=== PATIENT | female | born 1945 | race Caucasian/White ===

== ENCOUNTER 2016-04-26 11:51 | Emergency (ER) | payer MEDICARE, BC ==
[2016-04-26] MEDS ORDERED: Morphine 2 MG/ML Syringe IVPUSH ONE ×2 (12:16→15:40)
[2016-04-26] MEDS ORDERED: Potassium Chloride 10 MEQ in Premix Bag 1 BAG IV ONE (12:24)
[2016-04-26] MEDS ORDERED: Potassium Chloride 20 MEQ Tab.ER PO ONE (12:24)
[2016-04-26] MEDS ORDERED: Ondansetron 4 MG/2 ML SDV IVPUSH ONE (12:25)
--- NOTE | 2016-04-26 12:27 | EDM.PDOC ---
ED HPI GENERAL MEDICAL PROBLEM - General Chief Complaint: General Stated Complaint: Dizziness Time Seen by Provider: 04/26/16 11:52 Source of Information: Reports: Patient History Limitations: Reports: No limitations - History of Present Illness INITIAL COMMENTS - FREE TEXT/NARRATIVE: Patient had episode of dizziness at home after she reached down to take clothing out of the dryer and then stood back up. Says she had sudden dizziness and fell flat on her back on the floor. Patient has had issues with sudden worsening dizziness over the last few days. Did not hit head recently or have headache prior to dizziness starting. No recent new medications. Patient has long complicated history that includes ongoing issues with infection that appears to have been triggered initially but chronic picking at skin sores. Ultimately she became septic and later had joint infection. Treated by ID at [place]. Currently has PICC line and receives Invanz daily. She also reports significant increase in back pain since the fall today. Was unable to get self off of floor and ultimately was found on floor by daughter-in -law. Any movement causes significant discomfort. Patient received Fentanyl during ambulance ride. It helped somewhat but upon arrival she was noted to have lower O2 sats. Also noted to not want to take deep breath due to discomfort. O2 via NC started and was helpful. Later MS given and seemed to help further improve pain. ROS performed and patient denies any other changes. Lower Back Pain Score (Numeric/FACES): 9 - Related Data Allergies Allergy/AdvReac Type Severity Reaction Status Date / Time cephalexin [From Keflex] Allergy Other Verified 04/18/16 10:06 ciprofloxacin Allergy Rash Verified 04/18/16 10:06 coconut Allergy Hives Verified 04/18/16 10:06 diphenhydramine HCl Allergy Itching Verified 04/18/16 10:06 [From Benadryl] erythromycin base Allergy Other Verified 04/18/16 10:06 influenza A (H1N1) virus Allergy Other Verified 04/18/16 10:06 vaccine [id number] 2008 [From influenza A (H1N1)] influenza virus vaccine, Allergy Cannot Verified 04/18/16 10:06 specific Remember lactose Allergy Stomach Verified 04/18/16 10:06 Upset melatonin Allergy Respiratory Verified 04/18/16 10:06 Distress meperidine [From Demerol] Allergy Other Verified 04/18/16 10:06 meperidine HCl [From Demerol] Allergy Nausea and Verified 04/18/16 10:06 Vomiting Penicillins Allergy Airway Verified 04/18/16 10:06 Tightness pneumococcal vaccine Allergy Cannot Verified 04/18/16 10:06 Remember pseudoephedrine Allergy Other Verified 04/18/16 10:06 [From Sudafed] ranitidine [From Zantac] Allergy Other Verified 04/18/16 10:06 sulfacetamide Allergy Other Verified 04/18/16 10:06 tetracycline Allergy Other Verified 04/18/16 10:06 vancomycin Allergy Renal Verified 04/18/16 10:06 Failure Home Meds: Home Meds RX: Cetirizine [ZyrTEC] 10 mg PO DAILY 01/25/16 [History] RX: Acetaminophen [Acetaminophen Extra Strength] 500 mg PO Q4HR PRN 03/05/16 [ History] RX: Acetaminophen/HYDROcodone [[place] 325-5 MG] 1 tab PO BID PRN #30 tablet 03/23 [Rx] RX: Famotidine [Pepcid] 20 mg PO BID tablet 03/23/16 [Rx] RX: Lactobacillus Rhamnosus GG [Culturelle] 1 cap PO DAILY cap 03/23/16 [Rx] RX: Lidocaine [Lidocaine 5% Paraben-Free] 140 mg TRDERM Q24H PRN #30 patch 03/23 [Rx] RX: Multivitamins [Tab-A-Beverley] 1 tab PO DAILY tablet 03/23/16 [Rx] RX: Ondansetron [Zofran ODT] 4 mg PO Q4H PRN #30 tab.dis 03/23/16 [Rx] RX: Trolamine Salicylate/Aloe Vera [Aspercreme 10%] 1 gm TOP Q1H PRN #0 tube 05/04 [Rx] Potassium Chloride [Klor-Con 10] 10 meq PO DAILY 04/18/16 [History] Past Medical History HEENT History: Reports: Cataract, Impaired vision, Sinusitis Cardiovascular History: Reports: Blood clots/VTE/DVT, Cardiomyopathy, High cholesterol Respiratory History: Reports: Bronchitis, recurrent Gastrointestinal History: Reports: None, GERD Other Gastrointestinal History: Barretts esphagitis. 03-05-16, recent severe diarrhea thought secondary to antibiotic therapy Genitourinary History: Reports: None, Acute renal failure, Other (see below) Other Genitourinary History: Recent ARF secondary to Vancomycin. [employer] [place] History: Reports: Endometriosis, Fibroids, Polycystic Ovaries, Musculoskeletal History: Reports: Arthritis, Fracture, Gout, Osteoporosis, RA Neurological History: Reports: None Psychiatric History: Reports: None Endocrine/Metabolic History: Reports: Osteoporosis Hematologic History: Reports: None, Anemia Immunologic History: Reports: None Oncologic (Cancer) History: Reports: None Dermatologic History: Reports: Cellulitis Other Dermatologic History: Recently took oral Melatonin to help with sleep had hives and respiratory reaction, skin still has open dried areas 4-5 mm across on arms and legs. took claritin at home to resolve. madelaine Michel for Remicade today. - Infectious Disease History Infectious Disease History: Reports: Chicken pox, Measles, Mumps, Rubella, Other (see below) (Bacteremia secondary to MSSA.) Other Infectious Disease History: Bacteremia secondary to MSSA. - Past Surgical History Head Surgeries/Procedures: Reports: None HEENT Surgical History: Reports: Adenoidectomy, Cataract surgery, Tonsillectomy Respiratory Surgical History: Reports: None GI Surgical History: Reports: Appendectomy, Cholecystectomy, Hernia repair/other Female Surgical History: Reports: section, Hysterectomy Endocrine Surgical History: Reports: None Neurological Surgical History: Reports: None Musculoskeletal Surgical History: Reports: Carpal tunnel, Other (see below) Other Musculoskeletal Surgeries/Procedures:: Right wrist/hand opened/drained Oncologic Surgical History: Reports: None Social & Family History - Tobacco Use Smoking Status *Q: Former Smoker Years of Tobacco use: 20 Packs/Tins Daily: 1 Used Tobacco, but Quit: Yes Month Tobacco Last Used: 1990 Second Hand Smoke Exposure: No - Caffeine Use Caffeine Use: Reports: None - Alcohol Use Days Per Week of Alcohol Use: 0 - Recreational Drug Use Recreational Drug Use: No ED ROS GENERAL - Review of Systems Review Of Systems: See Below Constitutional: Reports: other (Patient cannot say if she blacked out at all when she had her dizzy spell). Denies: fever, chills, malaise, weakness, fatigue, night sweats, diaphoresis, decreased appetite, weight loss HEENT: Reports: Ear discharge, Ear pain, Eye pain, Sinus problem, Throat pain, Vertigo. Denies: Vision change Respiratory: Reports: no symptoms. Denies: cough Cardiovascular: Reports: Lightheadedness. Denies: Chest pain, Dyspnea on exertion, Edema, Palpitations, Syncope GI/Abdominal: Reports: No symptoms : Reports: no symptoms Musculoskeletal: Reports: back pain (see HPI), other (denies any other injuries from fall). Denies: neck pain Skin: Reports: other (chronic issues with skin lesions. ) Neurological: Reports: dizziness, other (using walker to help get around her home with the dizziness issues. ). Denies: confusion, headache, numbness, paresthesia, seizure, syncope, tingling, trouble speaking, weakness, change in speech Psychiatric: Reports: No symptoms Hematologic/Lymphatic: Reports: no symptoms ED EXAM, GENERAL - Physical Exam Exam: See Below Exam Limited By: Other (patient has increased pain in back with any movement.) General Appearance: alert, anxious, moderate distress Eye Exam: bilateral eye: EOMI, PERRL, other (no obvious nystagmus noted) Ears: normal external exam, hearing grossly normal, normal TMs Nose: normal inspection Throat/Mouth: Normal inspection, Normal voice, No airway compromise Head: atraumatic, normocephalic Neck: normal inspection, supple, non-tender. No: carotid bruit, lymphadenopathy (L), lymphadenopathy (R), tender lateral, tender midline Respiratory/Chest: no respiratory distress, lungs clear, normal breath sounds, no accessory muscle use, chest non-tender Cardiovascular: normal peripheral pulses, regular rate, rhythm, no edema, no murmur Peripheral Pulses: 2+: radial (L), radial (R), dorsalis pedis (L), dorsalis pedis (R) GI/Abdominal: normal bowel sounds, soft, no distention (Female) Exam: Deferred Rectal (Female) Exam: Deferred Back Exam: paraspinal tenderness (bilateral lumbar region), vertebral tenderness (lower thoracic area and lumbar spine) Extremities: non-tender, no pedal edema, normal capillary refill, other ( Negative straight leg raise bilaterally). No: joint swelling Neurological: alert, oriented, normal cognition, normal reflexes, no motor/ sensory deficits Psychiatric: anxious Skin Exam: Warm, Dry, Other (scattered small scabs and scars noted. None appeared erythematous or were draining. ). No: Diaphoretic, Increased warmth Course - Vital Signs Last Recorded V/S: Last Vital Signs Temp 35.8 C 04/26/16 12:08 Pulse 109 H 04/26/16 12:08 Resp 18 04/26/16 12:08 BP 146/103 H 04/26/16 12:08 Pulse Ox 94 L 04/26/16 12:08 - Orders/Labs/Meds Orders: Active Orders 24 hr Category Date Time Status Oxygen Therapy Adult [Oxygen Therapy, ED] [RC] Care 04/26/16 12:16 Active ASDIRECTED Head wo Cont [CT] Stat Exams 04/26/16 12:13 Taken Lumbar Spine wo Cont [CT] Stat Exams 04/26/16 12:18 Taken UA W/MICROSCOPIC [URIN] Stat Lab 04/26/16 11:53 Uncollected Sodium Chloride 0.9% [Normal Saline] 1,000 ml Med 04/26/16 15:36 Active IV ONETIME Medication Orders Sodium Chloride (Normal Saline) 1,000 mls @ 125 mls/hr IV ONETIME ONE Stop: 04/26/16 23:35 Last Admin: 04/26/16 16:21 Dose: 125 mls/hr Labs: Laboratory Tests 04/26/16 04/26/16 Range/Units 12:14 12:15 WBC 10.0 (4.0-10.2) K/uL RBC 3.79 (3.77-5.09) M/uL Hgb 11.3 L (11.7-15.5) g/dL Hct 35.6 (34.0-46.0) % MCV 93.9 (84.0-98.0) fL MCH 29.8 (28.2-33.3) pg MCHC 31.7 (31.7-36.0) g/dL RDW 16.2 H (11.2-14.1) % Plt Count 344 (150-350) K/uL Neut % (Auto) 80.8 H (45.0-80.0) % Lymph % (Auto) 11.3 (10.0-50.0) % [place] % (Auto) 5.8 (2.0-14.0) % Eos % (Auto) 2.0 (0.0-5.0) % Baso % (Auto) 0.1 (0.0-2.0) % Neut # 8.07 H (1.40-7.00) K/uL Lymph # 1.13 (0.50-3.50) K/uL [place] # 0.58 (0.00-1.00) K/uL Eos # 0.20 (0.00-0.50) K/uL Baso # 0.01 (0.00-0.20) K/uL Sodium 142 (136-145) mmol/L Potassium 3.8 (3.5-5.1) mmol/L Chloride 108 H (98-107) mmol/L Carbon Dioxide 23.4 (21.0-32.0) mmol/L BUN 7 (7-18) mg/dL Creatinine 0.69 (0.51-1.17) mg/dL Est Cr Clr Drug Dosing 52.16 mL/min Estimated GFR (MDRD) > 60 mL/min Glucose 119 H (74-106) mg/dL Calcium 8.4 L (8.5-10.1) mg/dL Total Bilirubin 0.4 (0.2-1.0) mg/dL AST 54 H (15-37) U/L ALT 28 (12-78) U/L Alkaline Phosphatase 277 H (46-116) IU/L Total Protein 6.6 (6.4-8.2) g/dL Albumin 2.2 L (3.4-5.0) g/dL Meds: Medications Generic Name Dose Route Start Last Admin Trade Name Freq PRN Reason Stop Dose Admin Sodium Chloride 1,000 mls @ 125 mls/hr 04/26/16 15:36 04/26/16 16:21 Normal Saline IV 04/26/16 23:35 125 mls/hr ONETIME ONE Administration Discontinued Medications Generic Name Dose Route Start Last Admin Trade Name Freq PRN Reason Stop Dose Admin Heparin Sodium (Porcine) 300 units 04/26/16 14:48 04/26/16 16:21 Heparin Lock Flush 100 Units/Ml Syringe FLUSH 04/26/16 14:49 Not Given ONETIME ONE Ertapenem 1 gm/ Sodium 100 mls @ 200 mls/hr 04/26/16 14:46 04/26/16 15:34 Chloride IV 04/26/16 15:15 200 mls/hr ONETIME ONE Administration Morphine Sulfate 2 mg 04/26/16 12:16 04/26/16 12:57 Morphine IVPUSH 04/26/16 12:17 2 mg ONETIME ONE Administration Morphine Sulfate 2 mg 04/26/16 15:40 04/26/16 16:55 Morphine IVPUSH 04/26/16 15:41 Not Given ONETIME ONE Ondansetron HCl 4 mg 04/26/16 12:25 04/26/16 12:30 Zofran IVPUSH 04/26/16 12:26 4 mg ONETIME ONE Administration Promethazine HCl 25 mg 04/26/16 16:45 04/26/16 16:54 Phenergan IM 04/26/16 16:46 25 mg ONETIME ONE Administration Sodium Chloride 10 ml 04/26/16 14:48 Saline Flush FLUSH 04/26/16 14:49 ONETIME ONE - Radiology Interpretation Free Text/Narrative:: CT of head negative for acute changes. CT of spine however showed changes around t11 and t12 that may indicate discitis per Radiology. - Re-Assessments/Exams Free Text/Narrative Re-Assessment/Exam: 04/26/16 15:41 Patient more comfortable after receiving MS. Radiology recommended MRI to look for active infection in lower thoracic spine. Given patient's recent issues with an infected joint and sepsis it is certainly possible that a localized infection could have developed in this area. Patient was accepted by to be transferred to [place] for continued workup. Plan at this time is to have MRI performed and have ID consult. Patient received Invanz while in ER. Tranfer by ambulance arranged. Can consider admission back to our facility after workup has been performed. Considering Swingbed admission is also an option given the worsening back pain and recent dizziness. Free Text/Narrative Re-Assessment/Exam: 04/26/16 15:45 Patient to be transferred once ambulance is available. Free Text/Narrative Re-Assessment/Exam: 04/26/16 17:19 Continued prolonged stay while waiting for available ambulance for transfer as well as Invanz infusion. Departure - Departure Time of Disposition: 17:20 Disposition: DC/Tfer to Acute Hospital 02 Condition: good Clinical Impression: Dizziness Acute back pain Qualifiers: Back pain location: thoracic back pain Back pain laterality: midline Qualified Code(s): M54.6 - Pain in thoracic spine Fall Qualifiers: Encounter type: initial encounter Qualified Code(s): W19.XXXA - Unspecified fall, initial encounter Referrals: Eusebia Rollins NP [Primary Care Provider] - Forms: ED Department Discharge - My Orders Last 24 Hours: My Active Orders 04/26/16 11:53 UA W/MICROSCOPIC [URIN] Stat 04/26/16 12:13 Head wo Cont [CT] Stat 04/26/16 12:16 Oxygen Therapy Adult [Oxygen Therapy, ED] [] ASDIRECTED 04/26/16 12:18 Lumbar Spine wo Cont [CT] Stat 04/26/16 15:36 Sodium Chloride 0.9% [Normal Saline] 1,000 ml IV ONETIME - Assessment/Plan Last 24 Hours: My Active Orders 04/26/16 11:53 UA W/MICROSCOPIC [URIN] Stat 04/26/16 12:13 Head wo Cont [CT] Stat 04/26/16 12:16 Oxygen Therapy Adult [Oxygen Therapy, ED] [] ASDIRECTED 04/26/16 12:18 Lumbar Spine wo Cont [CT] Stat 04/26/16 15:36 Sodium Chloride 0.9% [Normal Saline] 1,000 ml IV ONETIME
[2016-04-26 12:35] LABS: CHLORIDE,CL 108 mmol/L (98-107); SODIUM,NA 142 mmol/L (136-145)
[2016-04-26] MEDS ORDERED: Ertapenem 1 GM in Sodium Chloride 0.9% 100 ML IV ONE (14:46)
[2016-04-26] MEDS ORDERED: Sodium Chloride 0.9% 10 ML Syringe FLUSH ONE (14:48)
[2016-04-26] MEDS ORDERED: Sodium Chloride 0.9% 1,000 ML IV ONE (15:36)
[2016-04-26] MEDS ORDERED: Promethazine 25 MG/ML SDV IM ONE (16:45)
[2016-04-26 17:39] VITALS: BP 94/46
== END 2016-04-26 17:20 ==
LOC: LL.ED 11:51
DX: R42 Dizziness and giddiness (principal); M54.6 Pain in thoracic spine; E78.00 Pure hypercholesterolemia, unspecified; K21.9 Gastro-esophageal reflux disease without esophagitis; M19.90 Unspecified osteoarthritis, unspecified site; Z86.2 Personal history of diseases of the blood and blood-forming organs and certain disorders involving the immune mechanism; M06.9 Rheumatoid arthritis, unspecified; Z98.890 Other specified postprocedural states; Z98.49 Cataract extraction status, unspecified eye; Z90.49 Acquired absence of other specified parts of digestive tract; Z90.710 Acquired absence of both cervix and uterus; Z87.891 Personal history of nicotine dependence; Z88.1 Allergy status to other antibiotic agents; Z88.7 Allergy status to serum and vaccine; Z88.0 Allergy status to penicillin; Z88.2 Allergy status to sulfonamides; Z88.8 Allergy status to other drugs, medicaments and biological substances; W19.XXXA Unspecified fall, initial encounter
CPT/HCPCS: 36415; 70450; 72131; 80053; 85025; 96361; 96365; 96372; 96375; 99285; J1335; J2270; J2405; J2550; J7030; J7050; 99284

== ENCOUNTER 2024-09-02 08:05 | Inpatient (IN) | payer MEDICARE, BC ==
[2024-09-02 08:48] LABS: BASOPHILS ABSOLUTE AUTO 0.02 K/uL (0.00-0.20); BASOPHILS PERCENT AUTO 0.1 % (0.0-2.0); EOSINOPHILS ABSOLUTE AUTO 0.06 K/uL (0.00-0.50); EOSINOPHILS PERCENT AUTO 0.4 % (0.0-5.0); IMMATURE GRAN ABSOLUTE AUTO 0.11 10^3/uL (0.00-0.04); IMMATURE GRAN PERCENT AUTO 0.7 % (0.0-0.4); LYMPHOCYTES ABSOLUTE AUTO 0.82 K/uL (0.50-3.50); LYMPHOCYTES PERCENT AUTO 5.5 % (10.0-50.0); MONOCYTES ABSOLUTE AUTO 1.09 K/uL (0.00-1.00); MONOCYTES PERCENT AUTO 7.3 % (2.0-14.0); NEUTROPHILS ABSOLUTE AUTO 12.82 K/uL (1.40-7.00); NEUTROPHILS PERCENT AUTO 86.0 % (45.0-80.0); PLATELET COUNT,PLT 333 K/uL (150-350); RED BLOOD CELL COUNT 3.92 M/uL (3.77-5.09); RED CELL DISTRIBUTION WIDTH 13.3 % (11.2-14.1); WHITE BLOOD CELL COUNT,WBC 14.9 K/uL (4.0-10.2)
[2024-09-02 09:07] LABS: ALANINE AMINOTRANSFERASE,ALT 32.0 U/L (12-78); ASPARTATE AMNIOTRANSFERASE,AST 37.0 U/L (15-37); BILIRUBIN TOTAL 0.4 mg/dL (0.2-1.0); BLOOD UREA NITROGEN,BUN 7.0 mg/dL (7-18); CARBON DIOXIDE,CO2 24.6 mmol/L (21.0-32.0); CHLORIDE,CL 92.0 mmol/L (98-107); CREATININE 0.84 mg/dL (0.51-1.17); EST CRCL DRUG DOSING (CG) 47.26 mL/min; GLUCOSE RANDOM 138.0 mg/dL (70-99); POTASSIUM,K 3.3 mmol/L (3.5-5.1); PROTEIN TOTAL,TP 6.6 g/dL (6.4-8.2); SODIUM,NA 126.0 mmol/L (136-145)
[2024-09-02 09:12] LABS: LACTIC ACID 1.8 mmol/L (0.4-2.0)
[2024-09-02 09:14] LABS: ESTIMATED GFR 70.0 mL/min (>=60)
[2024-09-02] MEDS: Ondansetron 4 MG/2 ML SDV IVPUSH ONE (09:39)
[2024-09-02] MEDS: Magnesium Sulfate 2 GM/50 mL 2 GM in Premix Bag 1 BAG IV ONE (09:41)
[2024-09-02 11:00] LABS: APPEARANCE,URINE CLEAR; GLUCOSE,URINE NEGATIVE (NEGATIVE); OCCULT BLOOD,URINE MODERATE (NEGATIVE)
[2024-09-02] MEDS: Potassium Bicarbonate/Cit Ac 20 MEQ Effervescent Tab PO ONE (12:21)
[2024-09-02] MEDS: Loperamide 2 MG Tab PO ONE (12:21)
[2024-09-02] MEDS: methylPREDNISolone Sodium Succinate 40 MG/1 ML SDV IVPUSH SCH (12:24)
[2024-09-02] MEDS ORDERED: Ondansetron 4 MG/2 ML SDV IVPUSH PRN (16:00)
[2024-09-03 07:39] LABS: BASOPHILS ABSOLUTE AUTO 0.01 K/uL (0.00-0.20); BASOPHILS PERCENT AUTO 0.1 % (0.0-2.0); EOSINOPHILS ABSOLUTE AUTO 0.00 K/uL (0.00-0.50); EOSINOPHILS PERCENT AUTO 0.0 % (0.0-5.0); IMMATURE GRAN ABSOLUTE AUTO 0.11 10^3/uL (0.00-0.04); IMMATURE GRAN PERCENT AUTO 0.6 % (0.0-0.4); LYMPHOCYTES ABSOLUTE AUTO 0.66 K/uL (0.50-3.50); LYMPHOCYTES PERCENT AUTO 3.8 % (10.0-50.0); MONOCYTES ABSOLUTE AUTO 0.93 K/uL (0.00-1.00); MONOCYTES PERCENT AUTO 5.4 % (2.0-14.0); NEUTROPHILS ABSOLUTE AUTO 15.55 K/uL (1.40-7.00); NEUTROPHILS PERCENT AUTO 90.1 % (45.0-80.0); PLATELET COUNT,PLT 354 K/uL (150-350); RED BLOOD CELL COUNT 3.90 M/uL (3.77-5.09); RED CELL DISTRIBUTION WIDTH 13.6 % (11.2-14.1); WHITE BLOOD CELL COUNT,WBC 17.3 K/uL (4.0-10.2)
[2024-09-03] MEDS: Lactobacillus Rhamnosus GG (Probiotic) Cap PO SCH (07:46)
[2024-09-03 07:50] LABS: BLOOD UREA NITROGEN,BUN 13.0 mg/dL (7-18); CARBON DIOXIDE,CO2 24.5 mmol/L (21.0-32.0); CHLORIDE,CL 101.0 mmol/L (98-107); CREATININE 0.71 mg/dL (0.51-1.17); EST CRCL DRUG DOSING (CG) 55.92 mL/min; GLUCOSE RANDOM 125.0 mg/dL (70-99); POTASSIUM,K 4.0 mmol/L (3.5-5.1); SODIUM,NA 135.0 mmol/L (136-145)
[2024-09-03 07:52] LABS: ESTIMATED GFR 85.0 mL/min (>=60)
[2024-09-03] MEDS: Sodium Chloride 0.9% 10 ML Syringe FLUSH PRN (07:52)
[2024-09-03 09:30] VITALS: BP 140/81; PULSE 89
[2024-09-03 10:02] LABS: INR 13.0 (0.9-1.1)
== END 2024-09-03 10:28 | disposition home or self-care (01) | DRG 641 ==
LOC: LL.ED 08:05 → LL.MS 11:21
PROVIDERS: ADMIT Emergency Medicine; ATTEND Emergency Medicine
DX: E87.1 Hypo-osmolality and hyponatremia (principal); I42.9 Cardiomyopathy, unspecified; E83.42 Hypomagnesemia; Z66 Do not resuscitate; H54.7 Unspecified visual loss; E78.00 Pure hypercholesterolemia, unspecified; J44.9 Chronic obstructive pulmonary disease, unspecified; Z91.018 Allergy to other foods; K21.9 Gastro-esophageal reflux disease without esophagitis; M19.90 Unspecified osteoarthritis, unspecified site; M10.9 Gout, unspecified; M81.0 Age-related osteoporosis without current pathological fracture; D64.9 Anemia, unspecified; E86.0 Dehydration; Z88.0 Allergy status to penicillin; Z79.899 Other long term (current) drug therapy; Z79.01 Long term (current) use of anticoagulants; Z98.890 Other specified postprocedural states; Z90.49 Acquired absence of other specified parts of digestive tract; Z98.891 History of uterine scar from previous surgery; Z88.8 Allergy status to other drugs, medicaments and biological substances; Z90.710 Acquired absence of both cervix and uterus; Z86.718 Personal history of other venous thrombosis and embolism; Z98.49 Cataract extraction status, unspecified eye
CPT/HCPCS: 36415; 71046; 74019; 80048; 80053; 81001; 83605; 83690; 83735; 84295; 85025; 85610; 86140; 87426-QW; 96365; 96366; 96375; 99285-25; A9270-GY; J2405; J2919; J3475; J7030; J7131

== ENCOUNTER 2024-09-05 17:55 | Inpatient (IN) | payer MEDICARE, BC ==
[2024-09-05 18:22] LABS: BASOPHILS ABSOLUTE AUTO 0.02 K/uL (0.00-0.20); BASOPHILS PERCENT AUTO 0.1 % (0.0-2.0); EOSINOPHILS ABSOLUTE AUTO 0.00 K/uL (0.00-0.50); EOSINOPHILS PERCENT AUTO 0.0 % (0.0-5.0); IMMATURE GRAN ABSOLUTE AUTO 0.18 10^3/uL (0.00-0.04); IMMATURE GRAN PERCENT AUTO 0.9 % (0.0-0.4); LYMPHOCYTES ABSOLUTE AUTO 0.73 K/uL (0.50-3.50); LYMPHOCYTES PERCENT AUTO 3.8 % (10.0-50.0); MONOCYTES ABSOLUTE AUTO 0.99 K/uL (0.00-1.00); MONOCYTES PERCENT AUTO 5.2 % (2.0-14.0); NEUTROPHILS ABSOLUTE AUTO 17.29 K/uL (1.40-7.00); NEUTROPHILS PERCENT AUTO 90.0 % (45.0-80.0); PLATELET COUNT,PLT 400 K/uL (150-350); RED BLOOD CELL COUNT 4.07 M/uL (3.77-5.09); RED CELL DISTRIBUTION WIDTH 13.7 % (11.2-14.1); WHITE BLOOD CELL COUNT,WBC 19.2 K/uL (4.0-10.2)
[2024-09-05 18:26] LABS: APPEARANCE,URINE CLEAR; GLUCOSE,URINE NEGATIVE (NEGATIVE); OCCULT BLOOD,URINE SMALL (NEGATIVE)
[2024-09-05] MEDS ORDERED: Naloxone 0.4 MG/ML SDV IVPUSH PRN (18:27)
[2024-09-05] MEDS: fentaNYL 50 MCG/ML SDV IVPUSH ONE ×2 (18:32→19:17)
[2024-09-05] MEDS: Sodium Chloride 0.9% 10 ML Syringe FLUSH PRN (18:33)
[2024-09-05 18:42] LABS: ALANINE AMINOTRANSFERASE,ALT 43 U/L (12-78); ASPARTATE AMNIOTRANSFERASE,AST 54 U/L (15-37); BILIRUBIN TOTAL 0.5 mg/dL (0.2-1.0); BLOOD UREA NITROGEN,BUN 12 mg/dL (7-18); CARBON DIOXIDE,CO2 25.0 mmol/L (21.0-32.0); CHLORIDE,CL 92 mmol/L (98-107); CREATININE 0.75 mg/dL (0.51-1.17); GLUCOSE RANDOM 147 mg/dL (70-99); INR 8.3 (0.9-1.1); POTASSIUM,K 3.7 mmol/L (3.5-5.1); PROTEIN TOTAL,TP 7.0 g/dL (6.4-8.2); SODIUM,NA 126 mmol/L (136-145)
[2024-09-05 18:43] LABS: ESTIMATED GFR 80 mL/min (>=60)
[2024-09-05 18:47] LABS: LACTIC ACID 2.2 mmol/L (0.4-2.0)
[2024-09-05] MEDS: Ondansetron 4 MG/2 ML SDV IVPUSH ONE (19:17)
[2024-09-05] MEDS: metroNIDAZOLE/Normal Saline 500 MG in Premix Bag 1 BAG IV SCH (19:55)
[2024-09-05] MEDS ORDERED: Ondansetron 4 MG/2 ML SDV IVPUSH PRN (20:34)
[2024-09-05] MEDS ORDERED: Ondansetron 4 MG Tab.DIS PO PRN (20:34)
[2024-09-05] MEDS ORDERED: Clotrimazole 1% Crm 30 GM Tube TOP PRN (20:57)
[2024-09-05] MEDS: Ketorolac 15 MG/ML SDV IVPUSH PRN (22:02)
[2024-09-05 22:42] LABS: INR 7.5 (0.9-1.1)
[2024-09-06] MEDS: Lactobacillus Rhamnosus GG (Probiotic) Cap PO SCH (07:39)
[2024-09-06] MEDS ORDERED: Non-Formulary Medication 1 Each (Magnesium Oxide [Magnesium Oxide] 250 MG Tablet) PO SCH (08:00)
[2024-09-06 08:06] LABS: INR 1.4 (0.9-1.1)
[2024-09-06 08:07] LABS: ALANINE AMINOTRANSFERASE,ALT 35 U/L (12-78); ASPARTATE AMNIOTRANSFERASE,AST 39 U/L (15-37); BILIRUBIN TOTAL 0.4 mg/dL (0.2-1.0); BLOOD UREA NITROGEN,BUN 11 mg/dL (7-18); CARBON DIOXIDE,CO2 27.5 mmol/L (21.0-32.0); CHLORIDE,CL 97 mmol/L (98-107); CREATININE 0.74 mg/dL (0.51-1.17); GLUCOSE RANDOM 115 mg/dL (70-99); POTASSIUM,K 3.4 mmol/L (3.5-5.1); PROTEIN TOTAL,TP 5.7 g/dL (6.4-8.2); SODIUM,NA 130 mmol/L (136-145)
[2024-09-06 08:10] LABS: BASOPHILS ABSOLUTE AUTO 0.01 K/uL (0.00-0.20); BASOPHILS PERCENT AUTO 0.1 % (0.0-2.0); EOSINOPHILS ABSOLUTE AUTO 0.01 K/uL (0.00-0.50); EOSINOPHILS PERCENT AUTO 0.1 % (0.0-5.0); IMMATURE GRAN ABSOLUTE AUTO 0.11 10^3/uL (0.00-0.04); IMMATURE GRAN PERCENT AUTO 0.8 % (0.0-0.4); LYMPHOCYTES ABSOLUTE AUTO 0.69 K/uL (0.50-3.50); LYMPHOCYTES PERCENT AUTO 4.9 % (10.0-50.0); MONOCYTES ABSOLUTE AUTO 0.77 K/uL (0.00-1.00); MONOCYTES PERCENT AUTO 5.5 % (2.0-14.0); NEUTROPHILS ABSOLUTE AUTO 12.36 K/uL (1.40-7.00); NEUTROPHILS PERCENT AUTO 88.6 % (45.0-80.0); PLATELET COUNT,PLT 360 K/uL (150-350); RED BLOOD CELL COUNT 3.42 M/uL (3.77-5.09); RED CELL DISTRIBUTION WIDTH 13.8 % (11.2-14.1); WHITE BLOOD CELL COUNT,WBC 14.0 K/uL (4.0-10.2)
[2024-09-06 08:22] LABS: ESTIMATED GFR 81 mL/min (>=60)
[2024-09-06 15:12] LABS: POTASSIUM,K 3.4 mmol/L (3.5-5.1); PRO B-TYPE NATRIUR PEPT,BNPPRO 5039.0 pg/mL (0-125); SODIUM,NA 128.0 mmol/L (136-145)
[2024-09-06 20:29] LABS: BASOPHILS ABSOLUTE AUTO 0.01 K/uL (0.00-0.20); BASOPHILS PERCENT AUTO 0.1 % (0.0-2.0); EOSINOPHILS ABSOLUTE AUTO 0.07 K/uL (0.00-0.50); EOSINOPHILS PERCENT AUTO 0.4 % (0.0-5.0); IMMATURE GRAN ABSOLUTE AUTO 0.09 10^3/uL (0.00-0.04); IMMATURE GRAN PERCENT AUTO 0.5 % (0.0-0.4); LYMPHOCYTES ABSOLUTE AUTO 0.56 K/uL (0.50-3.50); LYMPHOCYTES PERCENT AUTO 3.3 % (10.0-50.0); MONOCYTES ABSOLUTE AUTO 0.66 K/uL (0.00-1.00); MONOCYTES PERCENT AUTO 3.9 % (2.0-14.0); NEUTROPHILS ABSOLUTE AUTO 15.47 K/uL (1.40-7.00); NEUTROPHILS PERCENT AUTO 91.8 % (45.0-80.0); PLATELET COUNT,PLT 306 K/uL (150-350); RED BLOOD CELL COUNT 3.44 M/uL (3.77-5.09); RED CELL DISTRIBUTION WIDTH 13.9 % (11.2-14.1); WHITE BLOOD CELL COUNT,WBC 16.9 K/uL (4.0-10.2)
[2024-09-06 20:42] LABS: BLOOD UREA NITROGEN,BUN 11.0 mg/dL (7-18); CARBON DIOXIDE,CO2 23.6 mmol/L (21.0-32.0); CHLORIDE,CL 96.0 mmol/L (98-107); CREATININE 0.74 mg/dL (0.51-1.17); EST CRCL DRUG DOSING (CG) 53.65 mL/min; GLUCOSE RANDOM 126.0 mg/dL (70-99); POTASSIUM,K 3.3 mmol/L (3.5-5.1); SODIUM,NA 128.0 mmol/L (136-145)
[2024-09-06] MEDS: Orphenadrine 60 MG/2 ML Inj IV SCH (20:44)
[2024-09-06] MEDS: Potassium Bicarbonate/Cit Ac 20 MEQ Effervescent Tab PO ONE ×2 (20:45→21:54)
[2024-09-06] MEDS: Furosemide 40 MG/4 ML VIAL IVPUSH ONE ×2 (20:45→21:16)
[2024-09-06 20:46] LABS: ESTIMATED GFR 81.0 mL/min (>=60)
[2024-09-07 08:25] LABS: INR 1.3 (0.9-1.1)
[2024-09-07 08:37] LABS: BASOPHILS ABSOLUTE AUTO 0.01 K/uL (0.00-0.20); BASOPHILS PERCENT AUTO 0.1 % (0.0-2.0); EOSINOPHILS ABSOLUTE AUTO 0.09 K/uL (0.00-0.50); EOSINOPHILS PERCENT AUTO 0.6 % (0.0-5.0); IMMATURE GRAN ABSOLUTE AUTO 0.09 10^3/uL (0.00-0.04); IMMATURE GRAN PERCENT AUTO 0.6 % (0.0-0.4); LYMPHOCYTES ABSOLUTE AUTO 0.48 K/uL (0.50-3.50); LYMPHOCYTES PERCENT AUTO 3.4 % (10.0-50.0); MONOCYTES ABSOLUTE AUTO 0.67 K/uL (0.00-1.00); MONOCYTES PERCENT AUTO 4.7 % (2.0-14.0); NEUTROPHILS ABSOLUTE AUTO 12.98 K/uL (1.40-7.00); NEUTROPHILS PERCENT AUTO 90.6 % (45.0-80.0); PLATELET COUNT,PLT 322 K/uL (150-350); RED BLOOD CELL COUNT 3.48 M/uL (3.77-5.09); RED CELL DISTRIBUTION WIDTH 14.0 % (11.2-14.1); WHITE BLOOD CELL COUNT,WBC 14.3 K/uL (4.0-10.2)
[2024-09-07 09:10] LABS: ALANINE AMINOTRANSFERASE,ALT 42.0 U/L (12-78); ASPARTATE AMNIOTRANSFERASE,AST 49.0 U/L (15-37); BILIRUBIN TOTAL 0.4 mg/dL (0.2-1.0); BLOOD UREA NITROGEN,BUN 10.0 mg/dL (7-18); CARBON DIOXIDE,CO2 25.7 mmol/L (21.0-32.0); CHLORIDE,CL 99.0 mmol/L (98-107); CREATININE 0.78 mg/dL (0.51-1.17); EST CRCL DRUG DOSING (CG) 50.9 mL/min; GLUCOSE RANDOM 121.0 mg/dL (70-99); POTASSIUM,K 3.6 mmol/L (3.5-5.1); PRO B-TYPE NATRIUR PEPT,BNPPRO 5140.0 pg/mL (0-125); PROTEIN TOTAL,TP 6.0 g/dL (6.4-8.2); SODIUM,NA 132.0 mmol/L (136-145)
[2024-09-07 09:11] VITALS: BP 114/62; PULSE 124
[2024-09-07 09:20] LABS: ESTIMATED GFR 76.0 mL/min (>=60)
[2024-09-07] MEDS: Furosemide 40 MG/4 ML VIAL IVPUSH ONE (10:06)
== END 2024-09-07 12:00 | DRG 372 ==
LOC: LL.ED 17:55 → LL.MS 20:30
PROVIDERS: ADMIT Physician Assistant; ATTEND Physician Assistant
DX: A04.8 Other specified bacterial intestinal infections (principal); R53.1 Weakness; E87.1 Hypo-osmolality and hyponatremia; I42.9 Cardiomyopathy, unspecified; Z66 Do not resuscitate; R79.1 Abnormal coagulation profile; H54.7 Unspecified visual loss; I25.10 Atherosclerotic heart disease of native coronary artery without angina pectoris; D72.829 Elevated white blood cell count, unspecified; J44.9 Chronic obstructive pulmonary disease, unspecified; K21.9 Gastro-esophageal reflux disease without esophagitis; M19.90 Unspecified osteoarthritis, unspecified site; I10 Essential (primary) hypertension; E78.00 Pure hypercholesterolemia, unspecified; M81.0 Age-related osteoporosis without current pathological fracture; M06.9 Rheumatoid arthritis, unspecified; F41.9 Anxiety disorder, unspecified; H91.93 Unspecified hearing loss, bilateral; F32.A Depression, unspecified; R79.89 Other specified abnormal findings of blood chemistry; Z90.89 Acquired absence of other organs; Z98.49 Cataract extraction status, unspecified eye; Z98.890 Other specified postprocedural states; Z88.1 Allergy status to other antibiotic agents; Z86.718 Personal history of other venous thrombosis and embolism; Z88.7 Allergy status to serum and vaccine; Z88.2 Allergy status to sulfonamides; Z88.8 Allergy status to other drugs, medicaments and biological substances; Z91.018 Allergy to other foods; Z91.011 Allergy to milk products; Z79.52 Long term (current) use of systemic steroids; Z88.0 Allergy status to penicillin; Z79.01 Long term (current) use of anticoagulants; Z79.899 Other long term (current) drug therapy; Z90.49 Acquired absence of other specified parts of digestive tract; Z90.710 Acquired absence of both cervix and uterus
CPT/HCPCS: 36415; 71045; 72131; 74176; 80048; 80053; 81001; 82270; 83605; 83735; 83880; 84132; 84295; 85025; 85610; 87040; 87077; 87147; 87186; 96365; 96375; 96376; 99285-25; A9270-GY; J0696; J1836; J1885; J1938; J2270; J2360; J2405; J2470; J3010; J3374; J3430; J7030; J7050; J7131

== ENCOUNTER 2024-09-15 09:37 | Inpatient (IN) | payer MEDICARE, BC ==
[2024-09-16] MEDS: Sodium Chloride 0.9% 10 ML Syringe FLUSH SCH ×2 (14:56→15:29)
[2024-09-16] MEDS ORDERED: Clotrimazole 1% Crm 30 GM Tube TOP PRN (17:37)
[2024-09-16] MEDS ORDERED: DENOSUMAB 60 MG/1 ML SUBCUT SCH (17:45)
[2024-09-17] MEDS: Lutein/Minerals/Vitamin C/Vitamin E Acetate Cap PO SCH (07:35)
[2024-09-20 13:16] LABS: BASOPHILS ABSOLUTE AUTO 0.02 K/uL (0.00-0.20); BASOPHILS PERCENT AUTO 0.3 % (0.0-2.0); EOSINOPHILS ABSOLUTE AUTO 0.14 K/uL (0.00-0.50); EOSINOPHILS PERCENT AUTO 1.9 % (0.0-5.0); IMMATURE GRAN ABSOLUTE AUTO 0.04 10^3/uL (0.00-0.04); IMMATURE GRAN PERCENT AUTO 0.5 % (0.0-0.4); LYMPHOCYTES ABSOLUTE AUTO 1.09 K/uL (0.50-3.50); LYMPHOCYTES PERCENT AUTO 14.5 % (10.0-50.0); MONOCYTES ABSOLUTE AUTO 0.73 K/uL (0.00-1.00); MONOCYTES PERCENT AUTO 9.7 % (2.0-14.0); NEUTROPHILS ABSOLUTE AUTO 5.48 K/uL (1.40-7.00); NEUTROPHILS PERCENT AUTO 73.1 % (45.0-80.0); PLATELET COUNT,PLT 245 K/uL (150-350); RED BLOOD CELL COUNT 3.35 M/uL (3.77-5.09); RED CELL DISTRIBUTION WIDTH 14.4 % (11.2-14.1); WHITE BLOOD CELL COUNT,WBC 7.5 K/uL (4.0-10.2)
[2024-09-20 13:28] LABS: GLUCOSE,URINE NEGATIVE (NEGATIVE); OCCULT BLOOD,URINE LARGE (NEGATIVE)
[2024-09-20 13:41] LABS: APPEARANCE,URINE SLIGHTLY CLOUDY
[2024-09-20 13:44] LABS: ALANINE AMINOTRANSFERASE,ALT 2.0 U/L (12-78); ASPARTATE AMNIOTRANSFERASE,AST 25.0 U/L (15-37); BILIRUBIN TOTAL 0.2 mg/dL (0.2-1.0); BLOOD UREA NITROGEN,BUN 11.0 mg/dL (7-18); CARBON DIOXIDE,CO2 30.9 mmol/L (21.0-32.0); CHLORIDE,CL 102.0 mmol/L (98-107); CREATININE 0.93 mg/dL (0.51-1.17); EST CRCL DRUG DOSING (CG) 34.08 mL/min; GLUCOSE RANDOM 200.0 mg/dL (70-99); POTASSIUM,K 3.2 mmol/L (3.5-5.1); PRO B-TYPE NATRIUR PEPT,BNPPRO 3640.0 pg/mL (0-125); PROTEIN TOTAL,TP 6.0 g/dL (6.4-8.2); SODIUM,NA 140.0 mmol/L (136-145)
[2024-09-20 13:44] LABS: SQUAMOUS EPITHELIAL CELLS,UR RARE /HPF (NOT SEEN); YEAST,URINE FEW /HPF (NEGATIVE)
[2024-09-20 13:45] LABS: ESTIMATED GFR 62.0 mL/min (>=60)
[2024-09-20] MEDS: Furosemide 20 MG/2 ML VIAL IVPUSH ONE (14:43)
[2024-09-20] MEDS: Potassium Bicarbonate/Cit Ac 20 MEQ Effervescent Tab PO ONE (14:43)
[2024-09-20] MEDS: Nitrofurantoin Monohydrate/Macrocrystalline 100 MG Cap PO SCH (14:43)
[2024-09-20] MEDS: Sodium Chloride 0.9% 10 ML Syringe FLUSH PRN (14:44)
[2024-09-20 14:47] LABS: O2 DELIVERY DEVICE ROOM AIR; O2 SATURATION VENOUS 86 %; PCO2 VENOUS 48 mmHG (41-51); PH,VENOUS 7.46 (7.31-7.41); PO2 VENOUS 49 mmHG
[2024-09-20 14:48] LABS: BASE EXCESS VENOUS 9 mmol/L ((-2)-3); BICARBONATE,VENOUS 34 mmol/L (23-28)
[2024-09-20 15:00] LABS: LACTIC ACID 1.3 mmol/L (0.4-2.0)
[2024-09-23 07:32] LABS: BASOPHILS ABSOLUTE AUTO 0.03 K/uL (0.00-0.20); BASOPHILS PERCENT AUTO 0.5 % (0.0-2.0); EOSINOPHILS ABSOLUTE AUTO 0.25 K/uL (0.00-0.50); EOSINOPHILS PERCENT AUTO 3.9 % (0.0-5.0); IMMATURE GRAN ABSOLUTE AUTO 0.02 10^3/uL (0.00-0.04); IMMATURE GRAN PERCENT AUTO 0.3 % (0.0-0.4); LYMPHOCYTES ABSOLUTE AUTO 1.40 K/uL (0.50-3.50); LYMPHOCYTES PERCENT AUTO 22.1 % (10.0-50.0); MONOCYTES ABSOLUTE AUTO 0.60 K/uL (0.00-1.00); MONOCYTES PERCENT AUTO 9.5 % (2.0-14.0); NEUTROPHILS ABSOLUTE AUTO 4.04 K/uL (1.40-7.00); NEUTROPHILS PERCENT AUTO 63.7 % (45.0-80.0); PLATELET COUNT,PLT 219 K/uL (150-350); RED BLOOD CELL COUNT 3.29 M/uL (3.77-5.09); RED CELL DISTRIBUTION WIDTH 14.4 % (11.2-14.1); WHITE BLOOD CELL COUNT,WBC 6.3 K/uL (4.0-10.2)
[2024-09-23 07:50] LABS: ASPARTATE AMNIOTRANSFERASE,AST 21 U/L (15-37); BILIRUBIN TOTAL 0.4 mg/dL (0.2-1.0); BLOOD UREA NITROGEN,BUN 13 mg/dL (7-18); CARBON DIOXIDE,CO2 33.1 mmol/L (21.0-32.0); CHLORIDE,CL 100 mmol/L (98-107); CREATININE 0.84 mg/dL (0.51-1.17); EST CRCL DRUG DOSING (CG) 37.73 mL/min; GLUCOSE RANDOM 108 mg/dL (70-99); POTASSIUM,K 4.1 mmol/L (3.5-5.1); PROTEIN TOTAL,TP 6.3 g/dL (6.4-8.2); SODIUM,NA 137 mmol/L (136-145)
[2024-09-23 07:53] LABS: ESTIMATED GFR 70 mL/min (>=60)
[2024-09-23 08:01] LABS: ALANINE AMINOTRANSFERASE,ALT < 6 U/L (12-78)
[2024-09-25] MEDS: Ondansetron 4 MG Tab.DIS PO PRN (09:27)
[2024-09-30] MEDS: Menthol 10%/Methyl Salicylate 15% 85 GM Tube TOP PRN (01:55)
[2024-09-30 07:35] LABS: BASOPHILS ABSOLUTE AUTO 0.03 K/uL (0.00-0.20); BASOPHILS PERCENT AUTO 0.6 % (0.0-2.0); EOSINOPHILS ABSOLUTE AUTO 0.25 K/uL (0.00-0.50); EOSINOPHILS PERCENT AUTO 4.7 % (0.0-5.0); IMMATURE GRAN ABSOLUTE AUTO 0.02 10^3/uL (0.00-0.04); IMMATURE GRAN PERCENT AUTO 0.4 % (0.0-0.4); LYMPHOCYTES ABSOLUTE AUTO 1.54 K/uL (0.50-3.50); LYMPHOCYTES PERCENT AUTO 28.9 % (10.0-50.0); MONOCYTES ABSOLUTE AUTO 0.38 K/uL (0.00-1.00); MONOCYTES PERCENT AUTO 7.1 % (2.0-14.0); NEUTROPHILS ABSOLUTE AUTO 3.11 K/uL (1.40-7.00); NEUTROPHILS PERCENT AUTO 58.3 % (45.0-80.0); PLATELET COUNT,PLT 247 K/uL (150-350); RED BLOOD CELL COUNT 3.38 M/uL (3.77-5.09); RED CELL DISTRIBUTION WIDTH 14.3 % (11.2-14.1); WHITE BLOOD CELL COUNT,WBC 5.3 K/uL (4.0-10.2)
[2024-09-30 08:05] LABS: ASPARTATE AMNIOTRANSFERASE,AST 19 U/L (15-37); BILIRUBIN TOTAL 0.3 mg/dL (0.2-1.0); BLOOD UREA NITROGEN,BUN 5 mg/dL (7-18); CARBON DIOXIDE,CO2 29.6 mmol/L (21.0-32.0); CHLORIDE,CL 106 mmol/L (98-107); CREATININE 0.77 mg/dL (0.51-1.17); EST CRCL DRUG DOSING (CG) 41.16 mL/min; GLUCOSE RANDOM 99 mg/dL (70-99); POTASSIUM,K 3.2 mmol/L (3.5-5.1); PROTEIN TOTAL,TP 6.5 g/dL (6.4-8.2); SODIUM,NA 146 mmol/L (136-145)
[2024-09-30 08:08] LABS: ESTIMATED GFR 77 mL/min (>=60)
[2024-09-30 08:57] LABS: ALANINE AMINOTRANSFERASE,ALT < 6 U/L (12-78)
[2024-10-05] MEDS: Potassium Bicarbonate/Cit Ac 20 MEQ Effervescent Tab PO ONE (08:25)
[2024-10-07 07:42] LABS: BASOPHILS ABSOLUTE AUTO 0.04 K/uL (0.00-0.20); BASOPHILS PERCENT AUTO 0.6 % (0.0-2.0); EOSINOPHILS ABSOLUTE AUTO 0.21 K/uL (0.00-0.50); EOSINOPHILS PERCENT AUTO 3.3 % (0.0-5.0); IMMATURE GRAN ABSOLUTE AUTO 0.01 10^3/uL (0.00-0.04); IMMATURE GRAN PERCENT AUTO 0.2 % (0.0-0.4); LYMPHOCYTES ABSOLUTE AUTO 1.70 K/uL (0.50-3.50); LYMPHOCYTES PERCENT AUTO 26.6 % (10.0-50.0); MONOCYTES ABSOLUTE AUTO 0.51 K/uL (0.00-1.00); MONOCYTES PERCENT AUTO 8.0 % (2.0-14.0); NEUTROPHILS ABSOLUTE AUTO 3.93 K/uL (1.40-7.00); NEUTROPHILS PERCENT AUTO 61.3 % (45.0-80.0); PLATELET COUNT,PLT 215 K/uL (150-350); RED BLOOD CELL COUNT 3.55 M/uL (3.77-5.09); RED CELL DISTRIBUTION WIDTH 14.2 % (11.2-14.1); WHITE BLOOD CELL COUNT,WBC 6.4 K/uL (4.0-10.2)
[2024-10-07 08:41] LABS: ASPARTATE AMNIOTRANSFERASE,AST 23.0 U/L (15-37); BILIRUBIN TOTAL 0.3 mg/dL (0.2-1.0); BLOOD UREA NITROGEN,BUN 6.0 mg/dL (7-18); CARBON DIOXIDE,CO2 28.0 mmol/L (21.0-32.0); CHLORIDE,CL 108.0 mmol/L (98-107); CREATININE 0.84 mg/dL (0.51-1.17); EST CRCL DRUG DOSING (CG) 37.73 mL/min; GLUCOSE RANDOM 108.0 mg/dL (70-99); POTASSIUM,K 3.3 mmol/L (3.5-5.1); PROTEIN TOTAL,TP 6.6 g/dL (6.4-8.2); SODIUM,NA 147.0 mmol/L (136-145)
[2024-10-07 08:50] LABS: ALANINE AMINOTRANSFERASE,ALT 3.0 U/L (12-78); ESTIMATED GFR 70.0 mL/min (>=60)
[2024-10-12] MEDS: Potassium Chloride 10 MEQ Tab.ER PO SCH (09:13)
[2024-10-12] MEDS: Potassium Bicarbonate/Cit Ac 20 MEQ Effervescent Tab PO ONE (12:03)
[2024-10-14 07:37] LABS: BASOPHILS ABSOLUTE AUTO 0.02 K/uL (0.00-0.20); BASOPHILS PERCENT AUTO 0.5 % (0.0-2.0); EOSINOPHILS ABSOLUTE AUTO 0.24 K/uL (0.00-0.50); EOSINOPHILS PERCENT AUTO 5.6 % (0.0-5.0); IMMATURE GRAN ABSOLUTE AUTO 0.01 10^3/uL (0.00-0.04); IMMATURE GRAN PERCENT AUTO 0.2 % (0.0-0.4); LYMPHOCYTES ABSOLUTE AUTO 1.26 K/uL (0.50-3.50); LYMPHOCYTES PERCENT AUTO 29.4 % (10.0-50.0); MONOCYTES ABSOLUTE AUTO 0.57 K/uL (0.00-1.00); MONOCYTES PERCENT AUTO 13.3 % (2.0-14.0); NEUTROPHILS ABSOLUTE AUTO 2.18 K/uL (1.40-7.00); NEUTROPHILS PERCENT AUTO 51.0 % (45.0-80.0); PLATELET COUNT,PLT 147 K/uL (150-350); RED BLOOD CELL COUNT 3.29 M/uL (3.77-5.09); RED CELL DISTRIBUTION WIDTH 14.1 % (11.2-14.1); WHITE BLOOD CELL COUNT,WBC 4.3 K/uL (4.0-10.2)
[2024-10-14 07:46] LABS: ASPARTATE AMNIOTRANSFERASE,AST 19 U/L (15-37); BILIRUBIN TOTAL 0.3 mg/dL (0.2-1.0); BLOOD UREA NITROGEN,BUN 6 mg/dL (7-18); CARBON DIOXIDE,CO2 34.8 mmol/L (21.0-32.0); CHLORIDE,CL 110 mmol/L (98-107); CREATININE 0.74 mg/dL (0.51-1.17); EST CRCL DRUG DOSING (CG) 42.83 mL/min; GLUCOSE RANDOM 104 mg/dL (70-99); POTASSIUM,K 3.6 mmol/L (3.5-5.1); PROTEIN TOTAL,TP 5.9 g/dL (6.4-8.2); SODIUM,NA 150 mmol/L (136-145)
[2024-10-14 07:51] LABS: ESTIMATED GFR 81 mL/min (>=60)
[2024-10-14 07:56] LABS: ALANINE AMINOTRANSFERASE,ALT < 6 U/L (12-78)
[2024-10-16] MEDS: Furosemide 40 MG/4 ML VIAL IVPUSH ONE (13:11)
[2024-10-17 15:13] LABS: APPEARANCE,URINE CLEAR; GLUCOSE,URINE NEGATIVE (NEGATIVE); OCCULT BLOOD,URINE NEGATIVE (NEGATIVE)
[2024-10-20 06:12] LABS: BASOPHILS ABSOLUTE AUTO 0.02 K/uL (0.00-0.20); BASOPHILS PERCENT AUTO 0.5 % (0.0-2.0); EOSINOPHILS ABSOLUTE AUTO 0.23 K/uL (0.00-0.50); EOSINOPHILS PERCENT AUTO 5.7 % (0.0-5.0); IMMATURE GRAN ABSOLUTE AUTO 0.00 10^3/uL (0.00-0.04); IMMATURE GRAN PERCENT AUTO 0.0 % (0.0-0.4); LYMPHOCYTES ABSOLUTE AUTO 1.33 K/uL (0.50-3.50); LYMPHOCYTES PERCENT AUTO 33.2 % (10.0-50.0); MONOCYTES ABSOLUTE AUTO 0.61 K/uL (0.00-1.00); MONOCYTES PERCENT AUTO 15.2 % (2.0-14.0); NEUTROPHILS ABSOLUTE AUTO 1.82 K/uL (1.40-7.00); NEUTROPHILS PERCENT AUTO 45.4 % (45.0-80.0); PLATELET COUNT,PLT 148 K/uL (150-350); RED BLOOD CELL COUNT 3.16 M/uL (3.77-5.09); RED CELL DISTRIBUTION WIDTH 13.6 % (11.2-14.1); WHITE BLOOD CELL COUNT,WBC 4.0 K/uL (4.0-10.2)
[2024-10-20 06:50] LABS: ALANINE AMINOTRANSFERASE,ALT 6.0 U/L (12-78); CHLORIDE,CL 108.0 mmol/L (98-107); POTASSIUM,K 3.0 mmol/L (3.5-5.1); SODIUM,NA 147.0 mmol/L (136-145)
[2024-10-20 06:51] LABS: ASPARTATE AMNIOTRANSFERASE,AST 22.0 U/L (15-37); BILIRUBIN TOTAL 0.4 mg/dL (0.2-1.0); BLOOD UREA NITROGEN,BUN 8.0 mg/dL (7-18); CARBON DIOXIDE,CO2 31.4 mmol/L (21.0-32.0); CREATININE 0.76 mg/dL (0.51-1.17); EST CRCL DRUG DOSING (CG) 41.7 mL/min; ESTIMATED GFR 79.0 mL/min (>=60); GLUCOSE RANDOM 95.0 mg/dL (70-99); PROTEIN TOTAL,TP 5.9 g/dL (6.4-8.2)
[2024-10-20 07:32] VITALS: BP 115/70; PULSE 95
== END 2024-10-20 08:53 | disposition home or self-care (01) | DRG 540 ==
LOC: LL.MS 09-16 13:26 → EEVIPCON 09-16 13:26 → LL.MS 09-21 17:43
PROVIDERS: ADMIT Emergency Medicine; ATTEND Emergency Medicine
PROC: 3E03329 Introduction of Other Anti-infective into Peripheral Vein, Percutaneous Approach (ICD-10-PCS; principal; 2024-09-16)
PROC: 5A09357 Assistance with Respiratory Ventilation, Less than 24 Consecutive Hours, Continuous Positive Airway Pressure (ICD-10-PCS; 2024-10-03)
DX: A18.01 Tuberculosis of spine (principal); B37.41 Candidal cystitis and urethritis; I42.9 Cardiomyopathy, unspecified; Z66 Do not resuscitate; H54.7 Unspecified visual loss; I48.91 Unspecified atrial fibrillation; I25.10 Atherosclerotic heart disease of native coronary artery without angina pectoris; I50.9 Heart failure, unspecified; I11.0 Hypertensive heart disease with heart failure; E78.00 Pure hypercholesterolemia, unspecified; J44.9 Chronic obstructive pulmonary disease, unspecified; K21.9 Gastro-esophageal reflux disease without esophagitis; M54.9 Dorsalgia, unspecified; G89.29 Other chronic pain; M81.0 Age-related osteoporosis without current pathological fracture; M06.9 Rheumatoid arthritis, unspecified; F41.9 Anxiety disorder, unspecified; F32.A Depression, unspecified; E66.9 Obesity, unspecified; Z86.718 Personal history of other venous thrombosis and embolism; Z90.89 Acquired absence of other organs; Z88.1 Allergy status to other antibiotic agents; Z86.73 Personal history of transient ischemic attack (TIA), and cerebral infarction without residual deficits; Z88.7 Allergy status to serum and vaccine; Z91.011 Allergy to milk products; Z88.0 Allergy status to penicillin; Z88.2 Allergy status to sulfonamides; Z79.899 Other long term (current) drug therapy; Z79.52 Long term (current) use of systemic steroids; Z79.01 Long term (current) use of anticoagulants; Z98.49 Cataract extraction status, unspecified eye; Z90.49 Acquired absence of other specified parts of digestive tract; Z90.710 Acquired absence of both cervix and uterus; E83.42 Hypomagnesemia; E87.6 Hypokalemia
CPT/HCPCS: 36415; 51798; 71045; 71046; 80053; 81001; 81003; 82803; 83605; 83880; 84484; 85025; 87086; 92610-GN; 93005; 94640; 94660; 97110-GO; 97110-GP; 97162-GP; 97166-GO; 97530-GO; 97530-GP; 97535-GO; A9270-GY; J0690; J1938